=== PATIENT | female | born 1955 | race Caucasian/White ===

== ENCOUNTER 2017-05-27 17:43 | Emergency (ER) | payer OTHER ==
[~2017-05-27] VITALS: Ht 157.5 cm; Wt 78.0 kg
[~2017-05-27 17:43] MED LIST: DYAZ37.52 PO; ENAL20TA81 PO; TAB-TAB PO
[2017-05-27 17:46] VITALS: BP 157/79; PULSE 79; RESP 16; TEMP 99; O2SAT 97
== END 2017-05-27 18:21 | disposition left against medical advice (07) ==
LOC: NED 17:43
DX: M79.604 Pain in right leg (principal)
CPT/HCPCS: 99281